=== PATIENT | female | born 1960 ===

== ENCOUNTER 2021-07-10 14:22 | Inpatient (IN) ==
[2021-07-10] MEDS ORDERED: PIPERACILLIN/TAZOBACTAM 3,375 MG in SODIUM CHLORIDE 0.9% 100 ML IV STA (14:38)
[2021-07-10 15:19] LABS: Basophils % 0.5 % (0.0-0.8); Eosinophils # 0.1 10*3/uL (0.0-0.87); Eosinophils % 1.1 % (0.00-10.9); Hematocrit 37.1 VOL% (35.7-47.0); Hemoglobin 12.6 GM/DL (12.0-16.0); Immature Granulocytes % 0.7 %; Immature Granulocytes Absolute 0.04 #; Lymphocytes # 0.7 10*3/uL (1.4-4.0); Mean Corpuscular Volume 96.9 FL (87-102); Mean Platelet Volume 9.6 FL (9.6-12.0); Monocytes % 14.1 % (1.7-12.7); Neutrophils % 70.6 % (38.7-73.9); Platelet Count 121 T/CUMM (130-400); Red Blood Count 3.83 MC/CUMM (3.8-5.5); Red Cell Distribution Width 13.8 % (9.3-17.3); White Blood Count 5.5 T/CUMM (4-12)
[2021-07-10 15:36] LABS: Alanine Aminotransferase 25 U/L (13-56); Albumin 2.8 G/DL (3.4-5.0); Alkaline Phosphatase 153 U/L (45-117); Aspartate Amino Transferase 28 U/L (0-37); Blood Urea Nitrogen 8 MG/DL (7-18); Calcium 8.8 MG/DL (8.5-10.1); Carbon Dioxide 27 MMOL/L (21-32); Estimated Glom Filtration Rate 82 ML/MIN; Glucose 244 MG/DL (74-106); Osmolality,Calculated 280.7 MOS/KG (273-304); Potassium 3.5 MMOL/L (3.5-5.1); Sodium 138 MMOL/L (136-145); Total Protein 7.7 G/DL (6.4-8.2)
[2021-07-10] MEDS ORDERED: VANCOMYCIN INJ 1,000 MG in SODIUM CHLORIDE 0.9% 250 ML IV STA ×2 (15:41→15:50)
[2021-07-10] MEDS ORDERED: SODIUM CHLORIDE 0.9% 2,200 ML IV ONE (15:42)
[2021-07-10] MEDS ORDERED: DEXTROSE 50% 25 GM/50 ML VIAL IV PRN ×2 (16:58)
[2021-07-10] MEDS ORDERED: GLUCAGON 1 MG VIAL IM PRN ×2 (16:58)
[2021-07-10 17:07] LABS: Amorphous Crystals,Urine Occasional /HPF (Few); Bacteria,Urine Occasional /HPF (Few); Bilirubin,Urine Negative (Negative); Blood, Urine Small mg/dL (Negative); Glucose,Urine (UA) >=500 mg/dL (Negative); Ketones,Urine Negative (Negative); Mucus,Urine Occasional /LPF (Occasional); Nitrite,Urine Negative (Negative); Protein,Urine Negative; RBC,Urine 3 /HPF (0-4); Squamous Epithelial Cell,Urine Occasional /HPF (0-10); Urine Appearance Slightly Hazy (Clear); Urine Color Yellow (Yellow); Urine Specific Gravity 1.016 (1.001-1.035)
[2021-07-10] MEDS: PIPERACILLIN/TAZOBACTAM 3,375 MG in SODIUM CHLORIDE 0.9% 100 ML IV SCH (18:03)
[2021-07-10] MEDS: prednisoLONE ACETATE 1% OPH SUSP 5 ML BOTTLE LEFT EYE SCH ×3 (18:08→22:20)
[2021-07-10] MEDS: ALBUTEROL/IPRATROPIUM 3 ML NEB RESP TX SCH (19:50)
[2021-07-10] MEDS ORDERED: INFLUENZA VIRUS VACCINE 0.5 ML SYRINGE IM ONE (20:54)
[2021-07-10] MEDS: INSULIN LISPRO 100 UNIT/ML SUBCUT SCH (21:13)
[2021-07-11] MEDS: prednisoLONE ACETATE 1% OPH SUSP 5 ML BOTTLE LEFT EYE SCH ×12 (00:20→23:40)
[2021-07-11] MEDS: ALBUTEROL/IPRATROPIUM 3 ML NEB RESP TX SCH ×4 (01:02→19:35)
[2021-07-11] MEDS: PIPERACILLIN/TAZOBACTAM 3,375 MG in SODIUM CHLORIDE 0.9% 100 ML IV SCH ×3 (02:39→21:33)
[2021-07-11] MEDS ORDERED: VANCOMYCIN INJ 1,000 MG in SODIUM CHLORIDE 0.9% 250 ML IV SCH (04:00)
[2021-07-11 05:44] LABS: Basophils % 0.3 % (0.0-0.8); Eosinophils % 0.1 % (0.00-10.9); Hematocrit 34.6 VOL% (35.7-47.0); Hemoglobin 11.6 GM/DL (12.0-16.0); Immature Granulocytes % 0.7 %; Immature Granulocytes Absolute 0.05 #; Lymphocytes # 0.6 10*3/uL (1.4-4.0); Lymphocytes % 8.7 % (21.3-54.2); Mean Corpuscular HGB Conc 33.5 GM/DL (32-36); Mean Corpuscular Volume 98.9 FL (87-102); Mean Platelet Volume 10.1 FL (9.6-12.0); Monocytes % 11.1 % (1.7-12.7); Neutrophils % 79.1 % (38.7-73.9); Platelet Count 119 T/CUMM (130-400); Red Cell Distribution Width 13.8 % (9.3-17.3); White Blood Count 7.4 T/CUMM (4-12)
[2021-07-11 05:56] LABS: Osmolality,Calculated 281.5 MOS/KG (273-304); Potassium 3.3 MMOL/L (3.5-5.1)
[2021-07-11 05:58] LABS: Albumin 2.2 G/DL (3.4-5.0); Calcium 8.1 MG/DL (8.5-10.1); Osmolality,Calculated 283.4 MOS/KG (273-304); Potassium 3.3 MMOL/L (3.5-5.1); Total Protein 6.3 G/DL (6.4-8.2)
[2021-07-11] MEDS: INSULIN LISPRO 100 UNIT/ML SUBCUT SCH ×6 (08:57→21:31)
[2021-07-11] MEDS: RIFAXIMIN 550 MG TABLET PO SCH ×2 (11:15→21:30)
[2021-07-11] MEDS: FERROUS SULFATE 325 MG TABLET PO SCH (11:15)
[2021-07-11] MEDS: ASPIRIN EC 81 MG TABLET PO SCH (11:15)
[2021-07-11] MEDS: ATORVASTATIN 20 MG TABLET PO SCH (11:15)
[2021-07-11] MEDS: FUROSEMIDE 40 MG TABLET PO SCH (11:15)
[2021-07-11] MEDS: ONDANSETRON 4 MG/2 ML VIAL IV PRN (11:16)
[2021-07-11] MEDS: INSULIN GLARGINE 100 UNIT/ML SUBCUT SCH (17:23)
[2021-07-12] MEDS: ALBUTEROL/IPRATROPIUM 3 ML NEB RESP TX SCH ×4 (00:31→20:12)
[2021-07-12] MEDS: prednisoLONE ACETATE 1% OPH SUSP 5 ML BOTTLE LEFT EYE SCH ×10 (01:48→21:35)
[2021-07-12] MEDS: PIPERACILLIN/TAZOBACTAM 3,375 MG in SODIUM CHLORIDE 0.9% 100 ML IV SCH ×3 (03:05→21:01)
[2021-07-12 05:47] LABS: Basophils % 0.2 % (0.0-0.8); Eosinophils % 0.1 % (0.00-10.9); Hematocrit 35.6 VOL% (35.7-47.0); Hemoglobin 12.3 GM/DL (12.0-16.0); Immature Granulocytes % 1.1 %; Lymphocytes # 0.8 10*3/uL (1.4-4.0); Lymphocytes % 8.5 % (21.3-54.2); Mean Corpuscular HGB Conc 34.6 GM/DL (32-36); Mean Corpuscular Volume 98.1 FL (87-102); Mean Platelet Volume 10.1 FL (9.6-12.0); Monocytes % 12.6 % (1.7-12.7); Neutrophils % 77.5 % (38.7-73.9); Platelet Count 124 T/CUMM (130-400); Red Blood Count 3.63 MC/CUMM (3.8-5.5); Red Cell Distribution Width 13.8 % (9.3-17.3)
[2021-07-12 05:54] LABS: Calcium 8.3 MG/DL (8.5-10.1); Osmolality,Calculated 277.8 MOS/KG (273-304); Potassium 3.1 MMOL/L (3.5-5.1)
[2021-07-12] MEDS: ATORVASTATIN 20 MG TABLET PO SCH (10:10)
[2021-07-12] MEDS: FERROUS SULFATE 325 MG TABLET PO SCH (10:10)
[2021-07-12] MEDS: RIFAXIMIN 550 MG TABLET PO SCH ×2 (10:10→20:54)
[2021-07-12] MEDS: ASPIRIN EC 81 MG TABLET PO SCH (10:10)
[2021-07-12] MEDS: INSULIN LISPRO 100 UNIT/ML SUBCUT SCH ×8 (10:11→20:55)
[2021-07-12] MEDS: FUROSEMIDE 40 MG TABLET PO SCH (10:11)
[2021-07-12] MEDS: INSULIN GLARGINE 100 UNIT/ML SUBCUT SCH (10:11)
[2021-07-12] MEDS: ATROPINE 1 % OPH SOLN 5 ML BOTTLE LEFT EYE SCH ×3 (17:36→21:34)
[2021-07-13] MEDS: ALBUTEROL/IPRATROPIUM 3 ML NEB RESP TX SCH ×4 (00:15→20:10)
[2021-07-13] MEDS: prednisoLONE ACETATE 1% OPH SUSP 5 ML BOTTLE LEFT EYE SCH ×4 (03:00→21:08)
[2021-07-13] MEDS: PIPERACILLIN/TAZOBACTAM 3,375 MG in SODIUM CHLORIDE 0.9% 100 ML IV SCH ×3 (04:20→21:16)
[2021-07-13 05:45] LABS: Basophils % 0.4 % (0.0-0.8); Eosinophils # 0.1 10*3/uL (0.0-0.87); Eosinophils % 0.9 % (0.00-10.9); Hematocrit 34.4 VOL% (35.7-47.0); Hemoglobin 11.9 GM/DL (12.0-16.0); Immature Granulocytes % 1.2 %; Immature Granulocytes Absolute 0.08 #; Mean Corpuscular HGB Conc 34.6 GM/DL (32-36); Mean Corpuscular Volume 96.9 FL (87-102); Monocytes % 15.8 % (1.7-12.7); Neutrophils % 66.7 % (38.7-73.9); Platelet Count 144 T/CUMM (130-400); Red Blood Count 3.55 MC/CUMM (3.8-5.5); Red Cell Distribution Width 13.4 % (9.3-17.3); White Blood Count 6.9 T/CUMM (4-12)
[2021-07-13 06:04] LABS: Calcium 7.9 MG/DL (8.5-10.1); Osmolality,Calculated 275.8 MOS/KG (273-304); Potassium 2.9 MMOL/L (3.5-5.1)
[2021-07-13 06:19] LABS: Band Neutrophils 1 % (0-10); Eosinophils 1 % (0-10); Hypochromasia Slight; Lymphocytes 15 % (20-55); Segmented Neutrophils 70 % (50-85); Total Cells Counted 100
[2021-07-13 06:20] LABS: Microcytosis Slight; Platelet Estimate Adequate
[2021-07-13] MEDS: ATROPINE 1 % OPH SOLN 5 ML BOTTLE LEFT EYE SCH ×4 (09:39→21:07)
[2021-07-13] MEDS: ATORVASTATIN 20 MG TABLET PO SCH (09:39)
[2021-07-13] MEDS: FUROSEMIDE 40 MG TABLET PO SCH (09:39)
[2021-07-13] MEDS: ASPIRIN EC 81 MG TABLET PO SCH (09:39)
[2021-07-13] MEDS: FERROUS SULFATE 325 MG TABLET PO SCH (09:40)
[2021-07-13] MEDS: RIFAXIMIN 550 MG TABLET PO SCH ×2 (09:40→21:16)
[2021-07-13] MEDS: POTASSIUM CHLORIDE 20 MEQ PACK PO SCH ×2 (09:40→11:34)
[2021-07-13] MEDS: INSULIN GLARGINE 100 UNIT/ML SUBCUT SCH (09:40)
[2021-07-13] MEDS: INSULIN LISPRO 100 UNIT/ML SUBCUT SCH ×8 (09:40→21:14)
[2021-07-13] MEDS: ONDANSETRON 4 MG/2 ML VIAL IV PRN (10:46)
[2021-07-13] MEDS ORDERED: BRIMONIDINE/TIMOLOL OPH SOLN 5 ML BOTTLE RIGHT EYE SCH ×2 (11:13→19:00)
[2021-07-13] MEDS ORDERED: BRINZOLAMIDE 1% OPH SUSP 10 ML BOTTLE RIGHT EYE SCH ×2 (11:14→19:00)
[2021-07-13] MEDS ORDERED: BRIMONIDINE/TIMOLOL OPH SOLN 5 ML BOTTLE RIGHT EYE ONE (18:32)
[2021-07-13] MEDS ORDERED: BRINZOLAMIDE 1% OPH SUSP 10 ML BOTTLE RIGHT EYE ONE (18:33)
[2021-07-13] MEDS: BRIMONIDINE/TIMOLOL OPH SOLN 5 ML BOTTLE LEFT EYE SCH ×2 (19:03→21:09)
[2021-07-13] MEDS: BRINZOLAMIDE 1% OPH SUSP 10 ML BOTTLE LEFT EYE SCH ×2 (19:03→21:07)
[2021-07-14] MEDS: ALBUTEROL/IPRATROPIUM 3 ML NEB RESP TX SCH ×4 (02:59→19:08)
[2021-07-14] MEDS: prednisoLONE ACETATE 1% OPH SUSP 5 ML BOTTLE LEFT EYE SCH ×4 (03:19→20:57)
[2021-07-14] MEDS: PIPERACILLIN/TAZOBACTAM 3,375 MG in SODIUM CHLORIDE 0.9% 100 ML IV SCH (06:12)
[2021-07-14] MEDS: INSULIN LISPRO 100 UNIT/ML SUBCUT SCH ×8 (08:15→20:57)
[2021-07-14] MEDS: ASPIRIN EC 81 MG TABLET PO SCH (08:52)
[2021-07-14] MEDS: INSULIN GLARGINE 100 UNIT/ML SUBCUT SCH (08:52)
[2021-07-14] MEDS: FERROUS SULFATE 325 MG TABLET PO SCH (08:52)
[2021-07-14] MEDS: RIFAXIMIN 550 MG TABLET PO SCH ×2 (08:52→20:43)
[2021-07-14] MEDS: ATORVASTATIN 20 MG TABLET PO SCH (08:52)
[2021-07-14] MEDS: FUROSEMIDE 40 MG TABLET PO SCH (08:52)
[2021-07-14] MEDS: BRIMONIDINE/TIMOLOL OPH SOLN 5 ML BOTTLE LEFT EYE SCH ×2 (08:54→20:44)
[2021-07-14] MEDS: ATROPINE 1 % OPH SOLN 5 ML BOTTLE LEFT EYE SCH (08:55)
[2021-07-14] MEDS: BRINZOLAMIDE 1% OPH SUSP 10 ML BOTTLE LEFT EYE SCH ×2 (08:55→20:44)
[2021-07-14 09:30] LABS: Basophils % 0.3 % (0.0-0.8); Eosinophils % 0.6 % (0.00-10.9); Hematocrit 35.3 VOL% (35.7-47.0); Hemoglobin 11.9 GM/DL (12.0-16.0); Immature Granulocytes % 0.7 %; Immature Granulocytes Absolute 0.05 #; Lymphocytes # 0.9 10*3/uL (1.4-4.0); Lymphocytes % 12.7 % (21.3-54.2); Mean Corpuscular HGB Conc 33.7 GM/DL (32-36); Mean Corpuscular Volume 96.2 FL (87-102); Mean Platelet Volume 9.3 FL (9.6-12.0); Monocytes % 12.6 % (1.7-12.7); Neutrophils % 73.1 % (38.7-73.9); Platelet Count 167 T/CUMM (130-400); Red Blood Count 3.67 MC/CUMM (3.8-5.5); Red Cell Distribution Width 13.5 % (9.3-17.3); White Blood Count 7.2 T/CUMM (4-12)
[2021-07-14 09:51] LABS: Calcium 8.3 MG/DL (8.5-10.1); Potassium 3.5 MMOL/L (3.5-5.1)
[2021-07-14] MEDS ORDERED: ATROPINE 1 % OPH SOLN 5 ML BOTTLE LEFT EYE SCH (12:00)
[2021-07-14] MEDS ORDERED: cefTRIAXone 1,000 MG in SODIUM CHLORIDE 0.9% 100 ML IV SCH (12:00)
[2021-07-14] MEDS: MOXIFLOXACIN 0.5% OPH SOLN 3 ML BOTTLE LEFT EYE SCH ×3 (13:27→20:44)
[2021-07-14 21:24] VITALS: BP 143/66
== END 2021-07-14 22:06 | disposition hospice, home (50) | DRG 82 ==
LOC: N.EDINP 14:22 → N.ED 14:22 → N.5E 20:10 → SUATTDRO 07-11 13:11
PROVIDERS: ADMIT Internal Medicine; ATTEND Internal Medicine